=== PATIENT | female | born 1955 | race African-American/Black ===

== ENCOUNTER 2019-05-29 08:58 | Emergency (ER) | payer MEDICARE, MEDICAID ==
[~2019-05-29] VITALS: Ht 167.6 cm; Wt 81.0 kg
[2019-05-29] MEDS ORDERED: IPRATROPIUM BROMIDE (0.02%) 0.5MG/2.5ML NEB HHN STA (09:28)
[2019-05-29] MEDS ORDERED: METHYLPREDNISOLONE SOD SUCC 125 MG/2 ML VIAL IV STA (09:28)
[2019-05-29] MEDS ORDERED: ALBUTEROL (0.083%) 2.5MG/3ML NEB HHN STA (09:28)
[2019-05-29] MEDS ORDERED: SODIUM CHLORIDE 0.9% 1,000 ML IV ONE (09:28)
[2019-05-29] MEDS ORDERED: HYDRALAZINE 20MG/ML VIAL IV ONE (09:30)
[2019-05-29] MEDS ORDERED: NITROGLYCERIN 0.4MG TABLET SL SL PRN (09:30)
[2019-05-29] MEDS ORDERED: MORPHINE SULFATE 4 MG/ML CPJ (NOT FOR IM USE) IV STA (09:33)
[2019-05-29] MEDS ORDERED: ONDANSETRON HCL 4MG/2ML INJ IV STA (09:33)
[2019-05-29] MEDS ORDERED: IPRATROPIUM BROMIDE (0.02%) 0.5MG/2.5ML NEB ONE (09:42)
[2019-05-29] MEDS ORDERED: ALBUTEROL (0.5%) 2.5MG/0.5ML NEB HHN ONE (09:43)
[2019-05-29 09:58] LABS: BASOPHILS % 0.4 % (0.0-2.0); HEMATOCRIT. 42.9 % (36.0-48.0); HEMOGLOBIN. 13.7 g/dL (12.0-16.0); LYMPHOCYTES % 9.4 % (20.0-50.0); MEAN CORPUSCULAR VOLUME 81.5 fL (81.0-99.0); MEAN PLATELET VOLUME 8.7 fl (7.4-10.4); MONOCYTES % 5.5 % (2.0-8.0); NEUTROPHILS % 84.7 % (40.0-76.0); PLATELET 197 x1000/uL (130-400); RED BLOOD CELL COUNT 5.26 mill/uL (4.2-5.4); RED CELL DISTRIBUTION WIDTH 15.4 % (11.6-14.6)
[2019-05-29 10:00] LABS: CHLORIDE 101 mEq/L (98-107)
[2019-05-29 10:05] LABS: D-DIMER 1.61 mg/L FEU (<0.50); PARTIAL THROMBOPLASTIN TIME 25.5 sec (23.4-31.0); PROTHROMBIN TIME 10.7 sec (9.6-11.0)
[2019-05-29] MEDS ORDERED: CLONIDINE 0.2MG TABLET PO ONE (11:15)
[2019-05-29 11:28] LABS: *AMPHETAMINES SCREEN URINE NEGATIVE (NEGATIVE); *BARBITURATES SCREEN URINE NEGATIVE (NEGATIVE); *BENZODIAZEPINES SCREEN URINE NEGATIVE (NEGATIVE); *COCAINE SCREEN URINE NEGATIVE (NEGATIVE); METHADONE URINE SCREEN NEGATIVE (NEGATIVE); OPIATES URINE SCREEN NEGATIVE (NEGATIVE); PHENCYCLIDINE URINE SCREEN NEGATIVE (NEGATIVE)
[2019-05-29 11:29] LABS: CANNABINOID URINE SCREEN PRESUMTIVE POSITIVE (NEGATIVE)
[2019-05-29] MEDS ORDERED: ASPIRIN 325MG EC TABLET PO ONE (11:30)
[2019-05-29] MEDS ORDERED: ESMOLOL 2500MG PREMIX 250 ML IV ONE ×2 (12:30)
[2019-05-29 14:00] VITALS: BP 154/78
[2019-05-29] MEDS ORDERED: IOHEXOL-350 100 ML BOTTLE ONE (14:59)
== END 2019-05-29 14:12 | disposition short-term general hospital (02) ==
LOC: ER 08:58 → CANBEDREQ 15:33
DX: I71.01 Dissection of thoracic aorta (principal); R07.9 Chest pain, unspecified; I16.1 Hypertensive emergency; F17.210 Nicotine dependence, cigarettes, uncomplicated; Z90.49 Acquired absence of other specified parts of digestive tract
CPT/HCPCS: 36415; 71045; 71275; 80053; 80305; 83880; 84484; 85025; 85379; 85610; 85730; 93005; 94640; 96361; 96365; 96375; 99291; J0360; J2270; J2405; J2930; J3490; J7030; J7611; Q9967

== ENCOUNTER 2024-06-25 19:38 | Emergency (ER) | payer MEDICARE, MEDICAID ==
[~2024-06-25] VITALS: Ht 175.3 cm; Wt 89.0 kg
[2024-06-25 19:49] VITALS: BP 160/81; PULSE 84; RESP 18; TEMP 98.5; O2SAT 90
[2024-06-25] MEDS ORDERED: IBUP-2029 MT (20:47)
== END 2024-06-25 22:02 | disposition home or self-care (01) ==
LOC: ER 19:38
DX: S70.02XA Contusion of left hip, initial encounter (principal); I10 Essential (primary) hypertension; Z90.49 Acquired absence of other specified parts of digestive tract; W18.39XA Other fall on same level, initial encounter; Y93.89 Activity, other specified; Y92.89 Other specified places as the place of occurrence of the external cause; Y99.8 Other external cause status
CPT/HCPCS: 72170; 73552; 73560; 73590; 99284